=== PATIENT | female | born 1955 | race Two or more races ===

== ENCOUNTER → 2023-12-14 10:52 | Outpatient (REF) | payer OTHER, SELFPAY | LOC: RAD 10:52 | PROVIDERS: ATTENDING PHYSICIAN Internal Medicine; FAMILY PHYSICIAN Family Medicine | DX: M81.0 Age-related osteoporosis without current pathological fracture (principal) | CPT/HCPCS: 77080 ==

== ENCOUNTER → 2024-09-08 14:57 | Outpatient (REF) | payer OTHER, SELFPAY | LOC: WDC 14:57 | PROVIDERS: ATTENDING PHYSICIAN Family Medicine | DX: Z12.31 Encounter for screening mammogram for malignant neoplasm of breast (principal) | CPT/HCPCS: 77063; 77067 ==

== ENCOUNTER 2025-02-24 06:20 | Day surgery (SDC) | payer OTHER, SELFPAY ==
[2025-02-24 07:38] VITALS: BMI 24.4
[2025-02-24 07:40] VITALS: BMI 24.4
[2025-02-24 07:47] VITALS: BP 142/72
[2025-02-24] MEDS: TYLENOL 1000 MG PO (07:50)
[2025-02-24] MEDS: NORMOSOL-R/PLASMALYTE-A 1000 IV (07:51)
--- NOTE | 2025-02-24 08:07 | HP.FOC2 ---
Focused History & Physical
Chief Complaint
HPI:
Chief Complaint: Right scapular subcutaneous
HPI / Indication for Planned Procedure: Patient is a 69-year-old female recently seen in outpatient surgical evaluation secondary to a longstanding history of a lipomatous mass in the right scapular region that has been present for 3 decades. She
has been following expectantly and has slowly increased in size to the point that it is readily noticeable and uncomfortable over the last year or so. Physical examination confirmed the presence of a soft mobile lipomatous mass in the right
scapular area extending towards the axilla. Patient presents today for scheduled operative excision.
Relevant Past Medical History: Other (Rheumatoid arthritis, osteoporosis, hypertension, symptomatic palpitations, Graves', IBS)
Relevant Social History: Negative
Relevant Family History: Negative
Relevant Past Surgical History: Positive for (Tonsillectomy, partial hysterectomy)
Review of Systems
Review of Pertinent Systems: All Systems Negative
Medication
See Medication form for detailed medications: Yes
Medication List (including Herbals & OTC):
ascorbic acid (vitamin C) 500 mg tablet (Vitamin C) 500 mg PO DAILY 02/23/25
celecoxib 100 mg capsule 100 mg PO DAILY 02/23/25
cholecalciferol (vitamin D3) 50 mcg (2,000 unit) tablet (Vitamin D3) 50 mcg PO DAILY 02/23/25
coenzyme Q10 100 mg capsule (Co Q-10) 200 mg PO DAILY 02/23/25
lisinopril 10 mg tablet 10 mg PO DAILY 02/23/25
metoprolol succinate 25 mg tablet,extended release 24 hr 25 mg PO QPM 02/23/25
Medications Reviewed: Yes
Allergies and Reactions
Patient has Allergies: Yes
Noted Allergies and Reactions:
Allergy/AdvReac Type Severity Reaction Status Date / Time
amoxicillin Allergy fever, rash Verified 02/24/25 07:34
doxycycline Allergy Nausea / Verified 02/24/25 07:34
Vomiting
Penicillins Allergy fever, rash Verified 02/24/25 07:34
Pertinent Physical Exam
All Other Systems: Negative
Head/Neck: Normal
Lungs: Normal
Heart: Normal
Abdomen: Normal
Extremities: Normal
Neurological: Normal
Other: Large right lateral scapular subcutaneous lipomatous mass
Diagnosis / Assessment
69-year-old female presenting for excision subcutaneous lipoma
Plan / Procedure
Excision right lateral scapula subcutaneous lipomatous mass
Anesthesia/Sedation to be done by Anesthesia Provider: Yes
--- NOTE | 2025-02-24 08:09 | W.SUR.PREOP ---
Pre-Operative Surgical Note
-
I have examined this patient prior to the performance of the scheduled procedure.
The patient's condition is unchanged from the time of the current History and
Physical and the patient is able to undergo the scheduled procedure.
[2025-02-24 09:26] VITALS: BP 131/58
--- NOTE | 2025-02-24 09:27 | W.IMMPOSTOP ---
Addendum entered and electronically signed by Carlos Manuel Singh MD 02/24/25 09:32:
#[id number]
Original Note:
Surgical Immed Post Op Note
-
Primary Surgeon: Carlos Manuel Singh MD
Assisting Surgeon: YEN Worthington
Pre-op Diagnosis: Right scapular subcutaneous lipoma
Post-op Diagnosis: Right scapular subcutaneous lipoma; excised diameter including margin 13 cm
Procedure Performed: Excision right scapula subcutaneous lipoma with intermediate complexity closure
Anesthesia Type: MAC +0.25% Marcaine/1% lidocaine with epinephrine
Specimen / Cultures: Subcutaneous lipoma
Estimated Blood Loss: 4 mL
Complications: None immediate
Operative Findings: Large subcutaneous lipoma in the right scapular region. No extension into the subfascial layers. 13 cm x 6 cm. Subcutaneous tissues quilted with numerous 3-0 Vicryl to reduce risk of postoperative seroma formation. Deep
dermal closure with 3-0 Vicryl. Skin closure with 4-0 Monocryl subcuticular. Steri-Strips and sterile gauze dressing.
[2025-02-24 09:30] VITALS: BP 128/57
[2025-02-24 09:48] VITALS: BP 128/64
[2025-02-24 10:00] VITALS: BP 125/52
== END 2025-02-24 10:20 | disposition home or self-care (01) ==
LOC: SDS 06:20
PROVIDERS: ATTENDING PHYSICIAN Surgery
DX: D17.9 Benign lipomatous neoplasm, unspecified (principal)
CPT/HCPCS: 23071; 88304